=== PATIENT | female | born 1940 | race American Indian/Alaskan Native ===

== ENCOUNTER 2019-09-12 08:54 | Outpatient (CLI) | payer MEDICARE, OTHER | END 2019-09-12 08:55 | disposition home or self-care (01) | LOC: LABHHL 08:54 | PROVIDERS: ATTEND Surgery | DX: C50.411 Malignant neoplasm of upper-outer quadrant of right female breast (principal) | CPT/HCPCS: 88305; 88341; 88342 ==

== ENCOUNTER 2019-12-30 10:36 | Outpatient (CLI) | payer MEDICARE | END 2019-12-30 10:37 | disposition home or self-care (01) | LOC: LABHHL 10:36 | PROVIDERS: ATTEND Internal Medicine Hematology & Oncology | DX: C50.911 Malignant neoplasm of unspecified site of right female breast (principal) | CPT/HCPCS: 88342 ==

== ENCOUNTER 2020-03-14 03:44 | Emergency (ER) | payer MEDICARE ==
[2020-03-14 03:56] VITALS: BP 189/79
--- NOTE | 2020-03-14 03:58 | Emergency Department Report ---
ED General Adult HPI - General Chief complaint: Extremity Injury, Lower Stated complaint: PAIN TO BOTTOM OF FOOT PUI?: Yes Time Seen by Provider: 03/14/20 03:46 Source: patient, EMS Mode of arrival: Stretcher Limitations: No Limitations - History of Present Illness Initial comments: Patient is an 80-year-old female that presents emergency room with pain on the bottom of her feet. Patient states her bilateral feet have a burning sensation to the plantar surface. Patient states it started tonight. Patient states that she has had this many times. Patient states that her primary. Thinks that she has neuropathy. Patient denies chest pain. Patient denies other physical complaints. Patient denies shortness of breath. Patient denies headache. Patient denies fever and chills. Patient denies cough. Patient denies nausea vomiting. Patient states that she has leg swelling is chronic but it is actually improving. Patient denies calf pain. Patient denies leg pain. Patient denies recent travel. Patient denies recent international travel. Patient denies exposure to the novel coronavirus. Patient denies sick contacts. Patient denies fever and chills. Patient denies cough. Patient denies diarrhea. Patient denies coming in contact with anybody with symptoms of the novel coronavirus. -: month(s) Severity scale (0 -10): 4 Quality: burning Consistency: intermittent Improves with: rest Worsens with: movement Associated Symptoms: denies: confusion, chest pain, cough, diaphoresis, fever/chills, headaches, loss of appetite, malaise, nausea/vomiting, rash, seizure, shortness of breath, syncope, weakness Treatments Prior to Arrival: none - Related Data Home Medications Medication Instructions Recorded Confirmed Last Taken Simvastatin [Zocor TAB] 40 mg PO QHS 12/03/14 09/27/19 09/26/19 Haloperidol Decanoate (Nf) [Haldol 50 mg IM Q4W 07/28/15 09/27/19 2 Weeks Ago Decanoate] ~09/13/19 ISOSORBIDE MONOnitrate [Imdur ER] 120 mg PO QDAY 09/26/19 09/26/19 09/27/19 04:00 Furosemide [Lasix TAB] 20 mg PO 3XW 09/27/19 09/27/19 09/25/19 Potassium Chloride 10 meq PO 3XW 09/27/19 09/27/1909/24/20 Previous Rx's Medication Instructions Recorded Last Taken Type Ibuprofen [Motrin 600 MG tab] 600 mg PO Q8H PRN #30 tablet 06/03/15 09/27/19 04:00 Rx Aspirin EC [Halfprin EC] 81 mg PO QDAY #30 tablet 06/09/15 09/26/19 Rx hydrALAZINE [Apresoline TAB] 25 mg PO Q8HR #90 tablet 06/09/15 09/27/19 04:00 Rx lisinopriL [Zestril TAB] 5 mg PO QDAY #30 tablet 06/09/15 09/27/19 04:00 Rx HYDROcodone/APAP 7.5-325 [[place] 1 each PO Q8HR PRN #10 tablet 06/18/15 09/27/19 04:00 Rx 7.5-325 mg TAB] Naproxen [Naprosyn TAB] 375 mg PO BID PRN #30 tablet 07/17/15 09/27/19 04:00 Rx Allergies Allergy/AdvReac Type Severity Reaction Status Date / Time No Known Allergies Allergy Verified 07/28/15 03:37 ED Review of Systems ROS: Stated complaint: OAIN TO BOTTOM OF FOOT Other details as noted in HPI Constitutional: denies: chills, fever Eyes: denies: eye pain, eye discharge, vision change ENT: denies: ear pain, throat pain Respiratory: denies: cough, shortness of breath, wheezing Cardiovascular: denies: chest pain, palpitations Endocrine: no symptoms reported Gastrointestinal: denies: abdominal pain, nausea, diarrhea Genitourinary: denies: urgency, dysuria, discharge Musculoskeletal: denies: back pain, joint swelling, arthralgia Skin: denies: rash, lesions Neurological: denies: headache, weakness, paresthesias Psychiatric: denies: anxiety, depression Hematological/Lymphatic: denies: easy bleeding, easy bruising ED Past Medical Hx - Past Medical History Previous Medical History?: Yes Hx Hypertension: Yes (X 1 YR) Hx Heart Attack/AMI: No Hx Congestive Heart Failure: No Hx Diabetes: No Hx Liver Disease: No Hx Renal Disease: No Hx Sickle Cell Disease: No Hx Arthritis: Yes Hx Psychiatric Treatment: Yes ([place] ([facility]) & [facility]; schizophrenia) Hx Asthma: No Hx COPD: No Hx HIV: No Additional medical history: High cholesterol - Surgical History Past Surgical History?: Yes Hx Pacemaker: No Hx Breast Surgery: Yes (BREAST BX X 2) Additional Surgical History: Hysterectomy - Family History Family history: no significant - Social History Smoking Status: Never Smoker Substance Use Type: None - Medications Home Medications: Home Medications Medication Instructions Recorded Confirmed Last Taken Type Simvastatin [Zocor TAB] 40 mg PO QHS 12/03/14 09/27/19 09/26/19 History Ibuprofen [Motrin 600 MG tab] 600 mg PO Q8H PRN #30 tablet 06/03/15 09/26/19 09/27/19 04:00 Rx Aspirin EC [Halfprin EC] 81 mg PO QDAY #30 tablet 06/09/15 09/26/19 09/26/19 Rx hydrALAZINE [Apresoline TAB] 25 mg PO Q8HR #90 tablet 06/09/15 09/26/19 09/27/19 04:00 Rx lisinopriL [Zestril TAB] 5 mg PO QDAY #30 tablet 06/09/15 09/26/19 09/27/19 04:00 Rx HYDROcodone/APAP 7.5-325 [[place] 1 each PO Q8HR PRN #10 tablet 06/18/15 09/26/19 09/27/19 04:00 Rx 7.5-325 mg TAB] Naproxen [Naprosyn TAB] 375 mg PO BID PRN #30 tablet 07/17/15 09/26/19 09/27/19 04:00 Rx Haloperidol Decanoate (Nf) [Haldol 50 mg IM Q4W 07/28/15 09/27/19 2 Weeks Ago History Decanoate] ~09/13/19 ISOSORBIDE MONOnitrate [Imdur ER] 120 mg PO QDAY 09/26/19 09/26/19 09/27/19 04:00 History Furosemide [Lasix TAB] 20 mg PO 3XW 09/27/19 09/27/19 09/25/19 History Potassium Chloride 10 meq PO 3XW 09/27/19 09/27/19 09/25/19 History ED Physical Exam - General Limitations: No Limitations General appearance: alert, in no apparent distress - Head Head exam: Present: atraumatic, normocephalic - Eye Eye exam: Present: normal appearance - ENT ENT exam: Present: mucous membranes moist - Neck Neck exam: Present: normal inspection - Respiratory Respiratory exam: Present: normal lung sounds bilaterally. Absent: respiratory distress - Cardiovascular Cardiovascular Exam: Present: regular rate, normal rhythm. Absent: systolic murmur, diastolic murmur, rubs, gallop - GI/Abdominal GI/Abdominal exam: Present: soft, normal bowel sounds - Extremities Exam Extremities exam: Present: normal inspection, full ROM, normal capillary refill, pedal edema. Absent: tenderness, joint swelling, calf tenderness - Back Exam Back exam: Present: normal inspection - Neurological Exam Neurological exam: Present: alert, oriented X3 - Psychiatric Psychiatric exam: Present: normal affect, normal mood - Skin Skin exam: Present: warm, dry, intact, normal color. Absent: rash ED Course - Reevaluation(s) Reevaluation #1: I discussed all results and clinical findings with patient. I discussed plan of care with patient. Patient agrees with plan of care. Patient is stable for discharge. Patient will be discharged home. Patient given discharge instructions. Patient voiced understanding of discharge instructions. 03/14/20 03:56 ED Medical Decision Making - Medical Decision Making Patient is an 80-year-old female that presents emergency room with burning on the bottom of the feet. Patient clinical findings are consistent with neuropathy. Patient is stable for discharge. Patient was discharged home. Patient not require further emergency medical services. Patient agrees with plan of care. Patient will be discharged home. - Differential Diagnosis Neuropathy, foot pain. Chronic pain Critical care attestation.: If time is entered above; I have spent that time in minutes in the direct care of this critically ill patient, excluding procedure time. ED Disposition Clinical Impression: Neuropathy Disposition: DC-01 TO HOME OR SELFCARE Is pt being admited?: No Does the pt Need Aspirin: No Condition: Stable Instructions: Peripheral Neuropathy (ED) Additional Instructions: Patient to follow-up with primary care in 2 to 3 days. Patient to rest. Yesi ent to increase water. Patient to take Tylenol or ibuprofen as needed for pain. Patient to continue all medications.. Patient to return to the ER if condition worsens, changes or new symptoms arise. Time of Disposition: 03:58
== END 2020-03-14 04:15 | disposition home or self-care (01) ==
LOC: ED 03:44
DX: G62.9 Polyneuropathy, unspecified (principal); I10 Essential (primary) hypertension; M19.90 Unspecified osteoarthritis, unspecified site; Z90.710 Acquired absence of both cervix and uterus; Z79.82 Long term (current) use of aspirin; Z79.899 Other long term (current) drug therapy
CPT/HCPCS: 99283

== ENCOUNTER 2020-03-23 16:09 | Inpatient (IN) | payer MEDICARE ==
[2020-03-23] MEDS ORDERED: hydrALAZINE 20 MG/1 ML INJ IV ONE ×2 (19:03→21:14)
--- NOTE | 2020-03-23 19:12 | Emergency Department Report ---
HPI - General Chief Complaint: Medical Clearance Time Seen by Provider: 03/23/20 18:55 - HPI HPI: This is an 80-year-old female presents to the emergency department, sent in by her breast surgeon Dr. Dye, for evaluation of her breast cancer and poss ible placement. Patient states that she has "bad breast cancer" to the right breast. She has a previous left-sided mastectomy. The patient is already gone through chemotherapy and radiation and last had radiation therapy about 2 weeks ago. She is complaining of generalized pain that is not relieved by her prescribed Ultram. She is noted to have a right-sided chest wall lesion that is draining brown purulent appearing material and some surrounding necrotic tissue. She also has a past medical history of arthritis, hypertension, high cholesterol and has a history of schizophrenia. I later spoke with Dr. Dey. 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 The patient has been to multiple emergency departments recently as she does not feel comfortable staying at home in her current condition. The patient went in to see Dr. Dye today but Dr. Kd regalado was in surgery and the patient saw the PA. Dr. Dye is aware of the condition of the patient's chest wall and wound. The area is inoperable as she would be unable to close the wound. She suggested the patient needs wound care and hospice. ED Past Medical Hx - Past Medical History Previous Medical History?: Yes Hx Hypertension: Yes (X 1 YR) Hx Heart Attack/AMI: No Hx Congestive Heart Failure: No Hx Diabetes: No Hx Liver Disease: No Hx Renal Disease: No Hx Sickle Cell Disease: No Hx Arthritis: Yes Hx Psychiatric Treatment: Yes ([place] ([facility]; schizophrenia) Hx Asthma: No Hx COPD: No Hx HIV: No Additional medical history: High cholesterol - Surgical History Past Surgical History?: Yes Hx Pacemaker: No Hx Breast Surgery: Yes (BREAST BX X 2) Additional Surgical History: Hysterectomy - Social History Smoking Status: Never Smoker Substance Use Type: None - Medications Home Medications: Home Medications Medication Instructions Recorded Confirmed Last Taken Type Simvastatin [Zocor TAB] 40 mg PO QHS 12/03/14 09/27/19 09/26/19 History Ibuprofen [Motrin 600 MG tab] 600 mg PO Q8H PRN #30 tablet 06/03/15 09/26/19 09/27/19 04:00 Rx Aspirin EC [Halfprin EC] 81 mg PO QDAY #30 tablet 06/09/15 09/26/19 09/26/19 Rx hydrALAZINE [Apresoline TAB] 25 mg PO Q8HR #90 tablet 06/09/15 09/26/19 09/27/19 04:00 Rx lisinopriL [Zestril TAB] 5 mg PO QDAY #30 tablet 06/09/15 09/26/19 09/27/19 04:00 Rx HYDROcodone/APAP 7.5-325 [[place] 1 each PO Q8HR PRN #10 tablet 06/18/15 09/26/19 09/27/19 04:00 Rx 7.5-325 mg TAB] Naproxen [Naprosyn TAB] 375 mg PO BID PRN #30 tablet 07/17/15 09/26/19 09/27/19 04:00 Rx Haloperidol Decanoate (Nf) [Haldol 50 mg IM Q4W 07/28/15 09/27/19 2 Weeks Ago History Decanoate] ~09/13/19 ISOSORBIDE MONOnitrate [Imdur ER] 120 mg PO QDAY 09/26/19 09/26/19 09/27/19 04:00 History Furosemide [Lasix TAB] 20 mg PO 3XW 09/27/19 09/27/19 09/25/19 History Potassium Chloride 10 meq PO 3XW 09/27/19 09/27/19 09/25/19 History ED Review of Systems ROS: Stated complaint: DR ORDERS TO COME TO ER Other details as noted in HPI Comment: All other systems reviewed and negative Constitutional: denies: chills, fever Eyes: denies: eye pain, vision change ENT: denies: ear pain, throat pain Respiratory: denies: cough, shortness of breath Cardiovascular: chest pain (chest wall pain). denies: palpitations Gastrointestinal: denies: abdominal pain, vomiting Genitourinary: denies: dysuria, discharge Musculoskeletal: denies: back pain, arthralgia Skin: lesions. denies: pruritus Neurological: denies: headache, weakness Physical Exam - Physical Exam Vital Signs: Vital Signs 03/23/20 03/23/20 16:47 19:03 Temperature 97.4 F L Pulse Rate 76 83 Respiratory 20 17 Rate Blood Pressure 182/95 Blood Pressure 220/99 [Left] O2 Sat by Pulse 99 98 Oximetry Physical Exam: GENERAL: The patient is well-developed well-nourished. HENT: Normocephalic. Atraumatic. Patient has moist mucous membranes. EYES: Extraocular motions are intact. NECK: Supple. Trachea is midline. CHEST/LUNGS: Clear to auscultation. There is no respiratory distress noted. HEART/CARDIOVASCULAR: Regular. There is no tachycardia. ABDOMEN: Abdomen is soft, nontender. Patient has normal bowel sounds. SKIN: Skin is warm and dry. There is a right-sided chest/breast wound. There is some thick fungating tissue around the room with some central ulceration and some visible brownish purulent appearing discharge. NEURO: The patient is awake, alert, and oriented. The patient is cooperative. The patient has no focal neurologic deficits. Normal speech. MUSCULOSKELETAL: There is no tenderness or deformity. ED Course Vital Signs 03/23/20 03/23/20 16:47 19:03 Temperature 97.4 F L Pulse Rate 76 83 Respiratory 20 17 Rate Blood Pressure 182/95 Blood Pressure 220/99 [Left] O2 Sat by Pulse 99 98 Oximetry ED Medical Decision Making - Lab Data Result diagrams: 03/23/20 19:11 03/23/20 19:11 - EKG Data -: EKG Interpreted by [facility] EKG shows normal: sinus rhythm, axis, intervals, QRS complexes, ST-T waves Rate: normal - EKG Data When compared to previous EKG there are: previous EKG unavailable Interpretation: normal EKG - Medical Decision Making This patient presents to the emergency department with a complaint of generalized body pain, a right-sided breast/chest wall wound, and uncontrolled blood pressure. She has advanced breast cancer with metastatic brain lesions. Patient is afebrile. There is no renal insufficiency but the labs do show signs of dehydration and prerenal azotemia with a BUN to creatinine ratio of almost 30. Patient was given some IV fluid resuscitation. Patient was also given a dose of IV analgesia and IV antihypertensive medication with some improvement in the hypertension. Patient will be admitted to the hospital for further evaluation and a consultation from her breast surgeon with the plan for wound care and possible hospice consult. Patient has been accepted for admission by the hospitalist, Dr. De Los Santos. Critical Care Time: No Critical care attestation.: If time is entered above; I have spent that time in minutes in the direct care of this critically ill patient, excluding procedure time. ED Disposition Clinical Impression: Hypertensive urgency, Dehydration Breast cancer Qualifiers: Breast location: unspecified site of breast Estrogen receptor status: unspecified Patient sex: female Laterality: right Qualified Code(s): C50.911 - Malignant neoplasm of unspecified site of right female breast Breast wound Qualifiers: Encounter type: subsequent encounter Laterality: right Qualified Code(s): S21.001D - Unspecified open wound of right breast, subsequent encounter Disposition: DC-09 OP ADMIT IP TO THIS HOSP Is pt being admited?: Yes Condition: Serious Time of Disposition: 21:25
[2020-03-23 19:29] LABS: Basophils % (Auto) 0.6 % (0.0-1.8); Eosinophils # (Auto) 0.2 K/mm3 (0.0-0.4); Eosinophils % (Auto) 2.8 % (0.0-4.3); Hematocrit 34.2 % (30.3-42.9); Lymphocytes # (Auto) 0.5 K/mm3 (1.2-5.4); Lymphocytes % (Auto) 7.6 % (13.4-35.0); Mean Corpuscular HGB Conc 32 % (30-34); Mean Corpuscular Volume 91 fl (79-97); Monocytes # (Auto) 0.7 K/mm3 (0.0-0.8); Monocytes % (Auto) 12.1 % (0.0-7.3); Platelet Count 251 K/mm3 (140-440); Red Blood Count 3.75 M/mm3 (3.65-5.03); Red Cell Distribution Width 13.8 % (13.2-15.2)
[2020-03-23] MEDS ORDERED: MORPHINE 2 MG/1 ML INJ IV ONE (19:41)
[2020-03-23 19:42] LABS: Albumin 3.4 g/dL (3.9-5); Calcium 9.5 mg/dL (8.4-10.2)
[2020-03-23] MEDS ORDERED: SODIUM CHLORIDE 0.9% 500 ML 500 ML IV ONE (19:54)
[2020-03-23] MEDS ORDERED: ONDANSETRON 4 MG/2 ML INJ IV PRN (21:37)
--- NOTE | 2020-03-23 21:45 | History and Physical Report ---
History of Present Illness Date of examination: 03/23/20 Date of admission: 03/23/2020 Chief complaint: Right Breast Cancer with Wound. History of present illness: 18-year-old after [place] female with known history of hypertension, arthritis, schizophrenia, history of breast cancer with left mastectomy in the past presenting to the emergency room today having been sent by her breast surgeon Dr. Gruber for for evaluation of wound right-sided breast cancer and for possible placement. Patient has had chemotherapy and radiation in the past and last radiation was s aid to be about 2 weeks ago. Patient complained of generalized pain which is not responding to analgesic medication Ultram. She has also noticed a brownish purulent drainage from the right breast wound. According to information gathered from the emergency room physician patient was said to have been noncompliant in the past with management and has gone to multiple hospitals and has had multiple emergency room visits. She is said to have gone to see Dr. Dye today but ended up seeing her PA as Dr. Dye was in surgery. Breast cancer with wound on the right breast is said to be inoperable. Recommendation is to have wound care and hospice. Upon arrival in the emergency room patient was hypotensive with systolic blood pressure in the 200s and diastolic blood pressure in the 100s. She was given multiple doses of IV hydralazine with some improvement in her blood pressure. Patient is being admitted for hypertensive urgency and also for evaluation of her right breast wound and for possible Hospice placement. Past History Past Medical History: arthritis, hypertension, hyperlipidemia, other (Schizpophrenia) Past Surgical History: hysterectomy, mastectomy (Left), Other (Breast biopsy X2) Social history: no significant social history Family history: no significant family history Medications and Allergies Allergies Allergy/AdvReac Type Severity Reaction Status Date / Time No Known Allergies Allergy Verified 07/28/15 03:37 Home Medications Medication Instructions Recorded Confirmed Last Taken Type Simvastatin [Zocor TAB] 40 mg PO QHS 12/03/14 09/27/19 09/26/19 History Ibuprofen [Motrin 600 MG tab] 600 mg PO Q8H PRN #30 tablet 06/03/15 09/26/19 09/27/19 04:00 Rx Aspirin EC [Halfprin EC] 81 mg PO QDAY #30 tablet 06/09/15 09/26/19 09/26/19 Rx hydrALAZINE [Apresoline TAB] 25 mg PO Q8HR #90 tablet 06/09/15 09/26/19 09/27/19 04:00 Rx lisinopriL [Zestril TAB] 5 mg PO QDAY #30 tablet 06/09/15 09/26/19 09/27/19 04:00 Rx HYDROcodone/APAP 7.5-325 [[place] 1 each PO Q8HR PRN #10 tablet 06/18/15 09/26/19 09/27/19 04:00 Rx 7.5-325 mg TAB] Naproxen [Naprosyn TAB] 375 mg PO BID PRN #30 tablet 07/17/15 09/26/19 09/27/19 04:00 Rx Haloperidol Decanoate (Nf) [Haldol 50 mg IM Q4W 07/28/15 09/27/19 2 Weeks Ago History Decanoate] ~09/13/19 ISOSORBIDE MONOnitrate [Imdur ER] 120 mg PO QDAY 09/26/19 09/26/19 09/27/19 04:00 History Furosemide [Lasix TAB] 20 mg PO 3XW 09/27/19 09/27/19 09/25/19 History Potassium Chloride 10 meq PO 3XW 09/27/19 09/27/19 09/25/19 History Active Meds: Active Medications Acetaminophen (Tylenol) 650 mg PO Q4H PRN PRN Reason: Pain MILD(1-3)/Fever >100.5/CHAUHAN Enoxaparin Sodium (Enoxaparin) 40 mg SUB-Q QDAY@2200 LEIZABET; Protocol Sodium Chloride (Nacl 0.9% 1000 Ml) 1,000 mls @ 75 mls/hr IV DIRECT ELIZABET Magnesium Hydroxide (Milk Of Magnesia) 30 ml PO Q4H PRN PRN Reason: Constipation Morphine Sulfate (Morphine) 2 mg IV Q4H PRN PRN Reason: Pain, Moderate (4-6) Ondansetron HCl (Zofran) 4 mg IV Q8H PRN PRN Reason: Nausea And Vomiting Sodium Chloride (Sodium Chloride Flush Syringe 10 Ml) 10 ml IV BID ELIZABET Sodium Chloride (Sodium Chloride Flush Syringe 10 Ml) 10 ml IV PRN PRN PRN Reason: LINE FLUSH Review of Systems Constitutional: no fever, no chills Ears, nose, mouth and throat: no nasal congestion, no sore throat Breasts: change in shape, discharge (Right breast), skin changes (Right) Cardiovascular: no chest pain, no palpitations Respiratory: no cough, no shortness of breath Gastrointestinal: no abdominal pain, no nausea, no vomiting, no diarrhea Genitourinary Female: no pelvic pain, no flank pain, no dysuria, no hematuria Musculoskeletal: no neck pain, no low back pain Integumentary: no rash, no pruritis Neurological: no headaches, no confusion Psychiatric: no anxiety, no depression Exam - Constitutional Vitals: Temp Pulse Resp BP Pulse Ox 97.6 F 100 H 12 164/88 94 03/23/20 19:30 03/23/20 21:30 03/23/20 21:30 03/23/20 21:30 03/23/20 21:30 General appearance: Present: no acute distress, cachectic, other (Dry oral Mucosa) - EENT Eyes: Present: PERRL, EOM intact. Absent: scleral icterus ENT: hearing intact, clear oral mucosa, dentition normal - Neck Neck: Present: supple, normal ROM - Respiratory Respiratory effort: normal Respiratory: bilateral: CTA - Cardiovascular Rhythm: regular Heart Sounds: Present: S1 & S2. Absent: gallop, systolic murmur, diastolic murmur, rub - Extremities Extremities: no ischemia, pulses intact, pulses symmetrical, Full ROM Extremity abnormal: edema (Trace bilateral lower extremity edema.) Peripheral Pulses: within normal limits - Abdominal General gastrointestinal: Present: soft, non-tender, non-distended, normal bowel sounds. Absent: mass - Integumentary Integumentary: Present: clear, warm, dry. Absent: rash - Musculoskeletal Musculoskeletal: strength equal bilaterally - Psychiatric Psychiatric: appropriate mood/affect, intact judgment & insight, memory intact, cooperative - Neurologic Neurologic: CNII-XII intact, no focal deficits, no moves all extremities - Additional findings Additional findings: Breast: Left breast mastectomy Fungating wound on the right breast with purulent brownish discharge. Minimal tenderness. Results - Labs CBC & Chem 7: 03/23/20 19:11 03/23/20 19:11 Labs: Abnormal lab results 03/23/20 03/23/20 Range/Units 19:11 19:11 Lymph % (Auto) 7.6 L (13.4-35.0) % [place] % (Auto) 12.1 H (0.0-7.3) % Lymph # (Auto) 0.5 L (1.2-5.4) K/mm3 Seg Neutrophils % 76.9 H (40.0-70.0) % BUN 31 H (7-17) mg/dL Glucose 138 H (65-100) mg/dL Albumin 3.4 L (3.9-5) g/dL Assessment and Plan - Patient Problems (1) Breast cancer Current Visit: Yes Status: Acute Plan to address problem: Patient has had left mastectomy in the past. She also has a right breast cancer with inoperable wound. She has had chemotherapy and radiation in the past. Patient follows up with Dr. Dye. Patient is to have wound care and also possible hospice placement. (2) Hypertensive urgency Current Visit: Yes Status: Acute Plan to address problem: We will resume patient's routine home medications. We will also placed on IV hydralazine as needed for optimal blood pressure control. (3) Dehydration Current Visit: Yes Status: Acute Plan to address problem: Patient placed on gentle IV fluid hydration. We will monitor BUN and creatinine. (4) DVT prophylaxis Current Visit: No Status: Acute Plan to address problem: Patient placed on subcutaneous Lovenox (5) Full code status Current Visit: No Status: Acute
[2020-03-23] MEDS ORDERED: ENOXAPARIN 40 MG/0.4 ML INJ SUB-Q SCH (22:00)
[2020-03-23] MEDS ORDERED: ENOXAPARIN 30 MG/0.3 ML INJ SUB-Q ONE (22:17)
[2020-03-23] MEDS: ENOXAPARIN 30 MG/0.3 ML INJ SUB-Q SCH (22:19)
[2020-03-24] MEDS ORDERED: MORPHINE 2 MG/1 ML INJ ONE ×3 (06:30→17:30)
[2020-03-24] MEDS ORDERED: amLODIPine 10 MG TAB ONE ×2 (11:00→13:13)
[2020-03-24] MEDS ORDERED: hydrALAZINE 100 MG TAB ONE ×2 (11:00→13:13)
[2020-03-24] MEDS ORDERED: hydrALAZINE 20 MG/1 ML INJ IV PRN (17:24)
[2020-03-24] MEDS: MORPHINE 2 MG/1 ML INJ IV PRN ×2 (17:44→22:22)
[2020-03-24] MEDS: ACETAMINOPHEN 325 MG TAB PO PRN (20:09)
--- NOTE | 2020-03-24 21:30 | Progress Note ---
Assessment and Plan -- Breast cancer Patient has had left mastectomy in the past. She also has a right breast cancer with inoperable wound. She has had chemotherapy and radiation in the past. Patient follows up with Dr. Dye. Patient started on wound care and also possible hospice placement. -- Hypertensive urgency resume patient's routine home medications. also placed on IV hydralazine as needed for optimal blood pressure control. --Osteoarthritis, supportive care and pain management as needed --Schizophrenia, history of Continue home meds, patient clinically stable -- Dehydration Patient placed on gentle IV fluid hydration. We will monitor BUN and creatinine. --Severe protein calorie malnutrition, continue nutritional supplement Consult dietary -- DVT prophylaxis Patient placed on subcutaneous Lovenox -- Full code status --Discharge planning, pending inpatient psych placement brief History: 80-year-old after [place]ian female with known history of hypertension, arthritis, schizophrenia, history of metastatic right breast cancer with left mastectomy in the past presenting to the emergency room for evaluation of wound right-sided breast cancer and for possible placement. Upon arrival in the emergency room patient was hypotensive with systolic blood pressure in the 200s and diastolic blood pressure in the 100s. She was given multiple doses of IV hydralazine with some improvement in her blood pressure. Patient is being admitted for hypertensive urgency and also for evaluation of her right breast wound and for possible Hospice placement. I discussed the case with Dr. Dye -breast surgeon who also discussed with patient's oncologist Dr. Tucker and they both agreeable for the inpatient hospice placement. branch operation evaluation manager notified. Subjective Date of service: 03/24/20 Interval history: Patient seen and examined. Medical records and medication list reviewed. No acute event overnight noted by the RN. Patient with right breast wound with dressing. Patient is started on diet and tolerating. Discussed plan of care at bedside with patient. Discussed with Dr. Dye and recommended inpatient hospice Objective - Exam Narrative Exam: - General physical appearance Positive: cathetic - Eyes Positive: PERRL, normal occular movement - ENT Positive: normal pinna, normal nares, normal mucosa, no hearing loss, no congestion - Neck Positive: no masses, trachea midline - Respiratory Positive: normal expansion, normal respiratory effort - Cardiovascular Rhythm: regular - Breasts Breasts: other (ulcerated necrotic right breast mass encompassing the entire right chest) - Abdomen Abdomen: Present: soft - Genitourinary Female Genitourinary: deferred - Neurologic Neurologic: alert and oriented to time, place and person - Psychiatric Psychiatric: appropriate mood/affect, intact judgment & insight, memory intact, cooperative - Constitutional Vitals: Vital Signs - 12hr 03/24/20 03/24/20 12:42 17:36 Temperature 97.9 F 97.5 F L Pulse Rate 57 L 56 L Respiratory 18 20 Rate Blood Pressure 215/112 163/84 O2 Sat by Pulse 93 88 Oximetry - Labs CBC & Chem 7: 03/23/20 19:11 03/23/20 19:11
[2020-03-24] MEDS: SODIUM CHLORIDE 0.9% 1000 ML 1,000 ML IV SCH (22:21)
[2020-03-24] MEDS: hydrALAZINE 100 MG TAB PO SCH (22:21)
[2020-03-24] MEDS: ENOXAPARIN 30 MG/0.3 ML INJ SUB-Q SCH (22:21)
[2020-03-25] MEDS: hydrALAZINE 100 MG TAB PO SCH ×3 (05:15→22:09)
[2020-03-25] MEDS: MORPHINE 2 MG/1 ML INJ IV PRN ×4 (06:44→22:09)
[2020-03-25] MEDS: amLODIPine 10 MG TAB PO SCH (10:22)
--- NOTE | 2020-03-25 11:38 | Consultation ---
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 Patient was initially seen in my office a year and a half ago with recommendations for right ultrasound-guided needle core right breast biopsy given high suspicious findings for right breast cancer. Patient did not have recommended biopsy same day as visit and also did keep follow-up appointment. Patient then was referred back to my care 10 months later with worsening findings of obvious advanced stage right breast cancer. Patient was then started on chemotherapy by medical oncologist Dr. Tucker. Upon completion of her chemotherapy patient was reevaluated with worsening findings of the upper abdomen satellite skin lesions and additional chemotherapy was recommended that was administered. Patient did not tolerate chemotherapy very well initially and then underwent palliative radiation therapy given inability to close the skin primarily if proceeding with surgery. Patient with known metastatic disease to the brain with conservative management recommended by radiation oncology. Rodrigo lopez was recently evaluated in our office on Monday, March 23 after being seen at outside ER over the weekend for complaints of pain and concerns of not being able to care for herself alone at home. Patient was admitted into the hospital. Past History Past Medical History: arthritis, hypertension, hyperlipidemia, other (Schizpophrenia; bilateral breast cancer) Past Surgical History: hysterectomy, mastectomy (Left), Other (Breast biopsy X2) Social history: no significant social history Family history: no significant family history Medications and Allergies Allergies Allergy/AdvReac Type Severity Reaction Status Date / Time No Known Allergies Allergy Verified 07/28/15 03:37 Home Medications Medication Instructions Recorded Confirmed Last Taken Type Simvastatin [Zocor TAB] 40 mg PO QHS 12/03/14 09/27/19 09/26/19 History Ibuprofen [Motrin 600 MG tab] 600 mg PO Q8H PRN #30 tablet 06/03/15 09/26/19 09/27/19 04:00 Rx Aspirin EC [Halfprin EC] 81 mg PO QDAY #30 tablet 06/09/15 09/26/19 09/26/19 Rx hydrALAZINE [Apresoline TAB] 25 mg PO Q8HR #90 tablet 06/09/15 09/26/19 09/27/19 04:00 Rx lisinopriL [Zestril TAB] 5 mg PO QDAY #30 tablet 06/09/15 09/26/19 09/27/19 04:00 Rx HYDROcodone/APAP 7.5-325 [[place] 1 each PO Q8HR PRN #10 tablet 06/18/15 09/26/19 09/27/19 04:00 Rx 7.5-325 mg TAB] Naproxen [Naprosyn TAB] 375 mg PO BID PRN #30 tablet 07/17/15 09/26/19 09/27/19 04:00 Rx Haloperidol Decanoate (Nf) [Haldol 50 mg IM Q4W 07/28/15 09/27/19 2 Weeks Ago History Decanoate] ~09/13/19 ISOSORBIDE MONOnitrate [Imdur ER] 120 mg PO QDAY 09/26/19 09/26/19 09/27/19 04:00 History Furosemide [Lasix TAB] 20 mg PO 3XW 09/27/19 09/27/19 09/25/19 History Potassium Chloride 10 meq PO 3XW 09/27/19 09/27/19 09/25/19 History Active Meds: Active Medications Acetaminophen (Tylenol) 650 mg PO Q4H PRN PRN Reason: Pain MILD(1-3)/Fever >100.5/CHAUHAN Last Admin: 03/24/20 20:09 Dose: 650 mg Documented by: Amlodipine Besylate (Amlodipine) 10 mg PO DAILY [facility] Last Admin: 03/25/20 10:22 Dose: 10 mg Documented by: Clindamycin HCl (Cleocin) 300 mg PO TID ELIZABET Enoxaparin Sodium (Enoxaparin) 30 mg SUB-Q QDAY@2200 [facility]; Protocol Last Admin: 03/24/20 22:21 Dose: 30 mg Documented by: Hydralazine HCl (Apresoline) 10 mg IV Q4H PRN PRN Reason: SBP>160 Hydralazine HCl (Apresoline) 100 mg PO Q8HR [facility] Last Admin: 03/25/20 05:15 Dose: 100 mg Documented by: Sodium Chloride (Nacl 0.9% 1000 Ml) 1,000 mls @ 75 mls/hr IV DIRECT [facility] Last Admin: 03/24/20 22:21 Dose: 75 mls/hr Documented by: Magnesium Hydroxide (Milk Of Magnesia) 30 ml PO Q4H PRN PRN Reason: Constipation Morphine Sulfate (Morphine) 2 mg IV Q4H PRN PRN Reason: Pain, Moderate (4-6) Last Admin: 03/25/20 10:22 Dose: 2 mg Documented by: Ondansetron HCl (Zofran) 4 mg IV Q8H PRN PRN Reason: Nausea And Vomiting Sodium Chloride (Sodium Chloride Flush Syringe 10 Ml) 10 ml IV BID [facility] Last Admin: 03/24/20 22:22 Dose: 10 ml Documented by: Sodium Chloride (Sodium Chloride Flush Syringe 10 Ml) 10 ml IV PRN PRN PRN Reason: LINE FLUSH Review of Systems All systems: negative - Constitutional weight loss, fatigue - Breasts swelling, mass, discharge, skin changes - Muskuloskeletal gait dysfunction Exam Vital Signs Temp Pulse Resp BP Pulse Ox 97.4 F L 76 20 182/95 99 03/23/20 16:47 03/23/20 16:47 03/23/20 16:47 03/23/20 16:47 03/23/20 16:47 - General physical appearance Positive: cathetic - Eyes Positive: PERRL, normal occular movement - ENT Positive: normal pinna, normal nares, normal mucosa, no hearing loss, no congestion - Neck Positive: no masses, trachea midline - Respiratory Positive: normal expansion, normal respiratory effort - Cardiovascular Rhythm: regular - Breasts Breasts: other (ulcerated necrotic right breast mass encompassing the entire right chest) - Abdomen Abdomen: Present: soft - Genitourinary Female Genitourinary: deferred - Neurologic Neurologic: alert and oriented to time, place and person - Psychiatric Psychiatric: appropriate mood/affect, intact judgment & insight, memory intact, cooperative Results - Labs 03/23/20 19:11 03/23/20 19:11 Assessment and Plan This is an 80-year-old lady with unfortunate metastatic stage IV right breast cancer recently admitted. Physical exam findings with ulcerated necrotic right chest wall breast cancer mass. I discussed case with her medical oncologist Dr. Tucker with recommendations for inpatient hospice. I agree given advanced staged metastatic right breast cancer. I discussed hospice care with patient on Monday as well as today. I recommend wound care to the right chest wall as well as antibiotics of clindamycin. Please call me with any questions, .
[2020-03-25] MEDS: CLINDAMYCIN 300 MG CAP PO SCH ×2 (13:42→22:09)
[2020-03-25] MEDS: MAGNESIUM HYDROXIDE (MOM) ORAL LIQD UDC PO PRN (13:45)
[2020-03-25] MEDS: SODIUM CHLORIDE 0.9% 1000 ML 1,000 ML IV SCH (16:40)
--- NOTE | 2020-03-25 17:23 | Discharge Summary ---
Providers - Providers Date of Admission: 03/23/20 21:26 Date of discharge: 03/27/20 Attending physician: RAQUEL CARBAJAL 03/23/20 21:10 Consult to Physician [CONS] Routine Comment: Consulting Provider: RAKAN DYE Physician Instructions: Reason For Exam: breast cancer 03/23/20 21:59 Consult to Case Management [CONS] Routine Services Needed at Discharge: Other Comment:: History of breast cancer with metastasis. Evaluate for hospice placement Consult to Wound/ET Nurse [CONS] Routine Reason For Exam: wound eval on right breast Primary care physician: TEST DRILLER Hospitalization Condition: Serious Hospital course: 80-year-old after Citizen Of [place] female with known history of hypertension, arthritis, schizophrenia, history of metastatic right breast cancer with left mastectomy in the past presenting to the emergency room for evaluation of wound right-sided breast cancer and for possible placement. Upon arrival in the emergency room patient was hypotensive with systolic blood pressure in the 200s and diastolic blood pressure in the 100s. She was given multiple doses of IV hydralazine with some improvement in her blood pressure. Patient is being admitted for hypertensive urgency and also for evaluation of her right breast wound and for possible Hospice placement. I discussed the case with Dr. Dye -breast surgeon who also discussed with patient's oncologist Dr. Tucker and they both agreeable for the inpatient hospice placement. operating manager notified and inpatient hospice was arranged. Patient family was notified and they also agreed with the management. Patient was then discharged to inpatient hospice care in stable condition. Discharge diagnosis: -- Breast cancer Patient has had left mastectomy in the past. She also has a right breast cancer with inoperable wound. She has had chemotherapy and radiation in the past. Patient follows up with Dr. Dye. Patient started on wound care and also possible hospice placement. -- Hypertensive urgency Continue to adjust BP meds for better BP control also placed on IV hydralazine as needed for optimal blood pressure control. --Osteoarthritis, supportive care and pain management as needed --Schizophrenia, history of Continue home meds, patient clinically stable -- Dehydration Patient placed on gentle IV fluid hydration. We will monitor BUN and creatinine. --Severe protein calorie malnutrition, continue nutritional supplement Consult dietary -- DVT prophylaxis Patient placed on subcutaneous Lovenox -- Full code status --Discharge : inpatient hospice placement Disposition: [facility] (MED FACILITY) Time spent for discharge: 34 minutes Core Measure Documentation - Palliative Care Palliative Care/ Comfort Measures: Not Applicable - Core Measures Any of the following diagnoses?: none Exam - Physical Exam Narrative exam: - General physical appearance Positive: cathetic - Eyes Positive: PERRL, normal occular movement - ENT Positive: normal pinna, normal nares, normal mucosa, no hearing loss, no congestion - Neck Positive: no masses, trachea midline - Respiratory Positive: normal expansion, normal respiratory effort - Cardiovascular Rhythm: regular - Breasts Breasts: other (ulcerated necrotic right breast mass encompassing the entire right chest) - Abdomen Abdomen: Present: soft - Genitourinary Female Genitourinary: deferred - Neurologic Neurologic: alert and oriented to time, place and person - Psychiatric Psychiatric: appropriate mood/affect, intact judgment & insight, memory intact, cooperative - Constitutional Vitals: Temp Pulse Resp BP Pulse Ox 98.2 F 103 H 15 140/79 94 03/25/20 16:25 03/25/20 16:25 03/25/20 16:25 03/25/20 16:25 03/25/20 16:25 Plan Activity: up only with assistance Weight Bearing Status: Non-Weight Bearing Diet: regular Wound: per wound nurse instructions Follow up with: PRIMARY CARE, [Primary Care Provider] - 7 Days
[2020-03-25] MEDS: ENOXAPARIN 30 MG/0.3 ML INJ SUB-Q SCH (22:09)
[2020-03-26] MEDS: SODIUM CHLORIDE 0.9% 1000 ML 1,000 ML IV SCH ×2 (06:16→18:34)
[2020-03-26] MEDS: hydrALAZINE 100 MG TAB PO SCH ×3 (06:16→22:01)
[2020-03-26] MEDS: MORPHINE 2 MG/1 ML INJ IV PRN ×3 (06:16→19:44)
[2020-03-26] MEDS: CLINDAMYCIN 300 MG CAP PO SCH ×3 (09:15→22:01)
[2020-03-26] MEDS: amLODIPine 10 MG TAB PO SCH (09:15)
--- NOTE | 2020-03-26 17:24 | Progress Note ---
Assessment and Plan -- Breast cancer Patient has had left mastectomy in the past. She also has a right breast cancer with inoperable wound. She has had chemotherapy and radiation in the past. Patient follows up with Dr. Dye. Patient started on wound care and also possible hospice placement. -- Hypertensive urgency Continue to adjust BP meds for better BP control also placed on IV hydralazine as needed for optimal blood pressure control. --Osteoarthritis, supportive care and pain management as needed --Schizophrenia, history of Continue home meds, patient clinically stable -- Dehydration Patient placed on gentle IV fluid hydration. We will monitor BUN and creatinine. --Severe protein calorie malnutrition, continue nutritional supplement Consult dietary -- DVT prophylaxis Patient placed on subcutaneous Lovenox -- Full code status --Discharge planning, pending inpatient psych placement brief History: 80-year-old after [place] female with known history of hypertension, arthritis, schizophrenia, history of metastatic right breast cancer with left mastectomy in the past presenting to the emergency room for evaluation of wound right-sided breast cancer and for possible placement. Upon arrival in the emergency room patient was hypotensive with systolic blood pressure in the 200s and diastolic blood pressure in the 100s. She was given multiple doses of IV hydralazine with some improvement in her blood pressure. Patient is being admitted for hypertensive urgency and also for evaluation of her right breast wound and for possible Hospice placement. I discussed the case with Dr. Dye -breast surgeon who also discussed with patient's oncologist Dr. Tucker and they both agreeable for the inpatient hospice placement. food concession manager notified. Subjective Date of service: 03/25/20 Interval history: Patient seen and examined. Medical records and medication list reviewed. No acute event overnight noted by the RN. Patient with right breast wound with dressing. Patient is started on diet and tolerating. Discussed plan of care at bedside with patient. Pending inpatient hospice placement Objective - Exam Narrative Exam: - General physical appearance Positive: cathetic - Eyes Positive: PERRL, normal occular movement - ENT Positive: normal pinna, normal nares, normal mucosa, no hearing loss, no congestion - Neck Positive: no masses, trachea midline - Respiratory Positive: normal expansion, normal respiratory effort - Cardiovascular Rhythm: regular - Breasts Breasts: other (ulcerated necrotic right breast mass encompassing the entire right chest) - Abdomen Abdomen: Present: soft - Genitourinary Female Genitourinary: deferred - Neurologic Neurologic: alert and oriented to time, place and person - Psychiatric Psychiatric: appropriate mood/affect, intact judgment & insight, memory intact, cooperative - Constitutional Vitals: Vital Signs - 12hr 03/26/20 03/26/20 03/26/20 06:14 06:17 09:15 Temperature 97.7 F 98.3 F Pulse Rate 101 H 70 108 H Respiratory 18 18 Rate Blood Pressure 150/77 147/83 Blood Pressure 190/93 [Left] O2 Sat by Pulse 100 98 Oximetry 03/26/20 12:04 Temperature 97.6 F Pulse Rate 107 H Respiratory 20 Rate Blood Pressure 117/66 Blood Pressure [Left] O2 Sat by Pulse 98 Oximetry - Labs CBC & Chem 7: 03/23/20 19:11 03/23/20 19:11
[2020-03-26] MEDS: MAGNESIUM HYDROXIDE (MOM) ORAL LIQD UDC PO PRN (19:43)
[2020-03-26] MEDS: levETIRAcetam 500 MG/5 ML ORAL LIQD PO SCH (22:01)
[2020-03-26] MEDS: ENOXAPARIN 30 MG/0.3 ML INJ SUB-Q SCH (22:01)
[2020-03-26] MEDS: ACETAMINOPHEN 325 MG TAB PO PRN (22:09)
[2020-03-26] MEDS: carvediloL 3.125 MG TAB PO SCH (22:11)
[2020-03-27] MEDS: MORPHINE 2 MG/1 ML INJ IV PRN ×3 (02:27→23:12)
[2020-03-27] MEDS: hydrALAZINE 100 MG TAB PO SCH ×3 (05:45→21:54)
[2020-03-27] MEDS: levETIRAcetam 500 MG/5 ML ORAL LIQD PO SCH ×2 (09:48→21:55)
[2020-03-27] MEDS: carvediloL 3.125 MG TAB PO SCH ×3 (09:48→21:55)
[2020-03-27] MEDS: CLINDAMYCIN 300 MG CAP PO SCH ×3 (09:48→21:54)
[2020-03-27] MEDS: amLODIPine 10 MG TAB PO SCH (09:48)
--- NOTE | 2020-03-27 10:11 | Event Note ---
Date: 03/26/20 Spoke with patient's sister and she is agreeable for the [facility] hospice.
--- NOTE | 2020-03-27 12:20 | Progress Note ---
Assessment and Plan -- Breast cancer Patient has had left mastectomy in the past. She also has a right breast cancer with inoperable wound. She has had chemotherapy and radiation in the past. Patient follows up with Dr. Dye. Patient started on wound care and also possible hospice placement. -- Hypertensive urgency Continue to adjust BP meds for better BP control also placed on IV hydralazine as needed for optimal blood pressure control. --Osteoarthritis, supportive care and pain management as needed --Schizophrenia, history of Continue home meds, patient clinically stable -- Dehydration Patient placed on gentle IV fluid hydration. We will monitor BUN and creatinine. --Severe protein calorie malnutrition, continue nutritional supplement Consult dietary -- DVT prophylaxis Patient placed on subcutaneous Lovenox -- Full code status --Discharge planning, pending inpatient hospice placement brief History: 80-year-old after [place] female with known history of hypertension, arthritis, schizophrenia, history of metastatic right breast cancer with left mastectomy in the past presenting to the emergency room for evaluation of wound right-sided breast cancer and for possible placement. Upon arrival in the emergency room patient was hypotensive with systolic blood pressure in the 200s and diastolic blood pressure in the 100s. She was given multiple doses of IV hydralazine with some improvement in her blood pressure. Patient is being admitted for hypertensive urgency and also for evaluation of her right breast wound and for possible Hospice placement. I discussed the case with Dr. Dye -breast surgeon who also discussed with patient's oncologist Dr. Tucker and they both agreeable for the inpatient hospice placement. environmental project manager notified. Subjective Date of service: 03/26/20 Interval history: Patient seen and examined. Medical records and medication list reviewed. No acute event overnight noted by the RN. Patient with right breast wound with dressing. Patient is started on diet and tolerating. Discussed plan of care at bedside with patient. Pending inpatient hospice placement Objective - Exam Narrative Exam: - General physical appearance Positive: cathetic - Eyes Positive: PERRL, normal occular movement - ENT Positive: normal pinna, normal nares, normal mucosa, no hearing loss, no congestion - Neck Positive: no masses, trachea midline - Respiratory Positive: normal expansion, normal respiratory effort - Cardiovascular Rhythm: regular - Breasts Breasts: other (ulcerated necrotic right breast mass encompassing the entire right chest) - Abdomen Abdomen: Present: soft - Genitourinary Female Genitourinary: deferred - Neurologic Neurologic: alert and oriented to time, place and person - Psychiatric Psychiatric: appropriate mood/affect, intact judgment & insight, memory intact, cooperative - Constitutional Vitals: Vital Signs - 12hr 03/27/20 03/27/20 03/27/20 02:35 02:57 03:57 Temperature 97.4 F L Pulse Rate 82 Respiratory 18 16 Rate Respiratory 16 Rate [Right Chest] Blood Pressure 150/88 O2 Sat by Pulse 99 Oximetry - Labs CBC & Chem 7: 03/23/20 19:11 03/23/20 19:11
[2020-03-27] MEDS: ENOXAPARIN 30 MG/0.3 ML INJ SUB-Q SCH (21:55)
[2020-03-28] MEDS: hydrALAZINE 100 MG TAB PO SCH ×2 (05:50→13:23)
[2020-03-28] MEDS: MORPHINE 2 MG/1 ML INJ IV PRN ×2 (05:55→13:22)
[2020-03-28] MEDS: amLODIPine 10 MG TAB PO SCH (10:21)
[2020-03-28] MEDS: levETIRAcetam 500 MG/5 ML ORAL LIQD PO SCH (10:21)
[2020-03-28] MEDS: carvediloL 3.125 MG TAB PO SCH (10:21)
[2020-03-28] MEDS: CLINDAMYCIN 300 MG CAP PO SCH ×2 (10:21→13:24)
[2020-03-28 12:45] VITALS: BP 112/59
== END 2020-03-28 14:45 | disposition hospice, inpatient (51) | DRG 597 ==
LOC: ED 16:09 → 3A 21:26 → OBSVTOIN 03-27 14:28
PROVIDERS: ADMIT Internal Medicine Geriatric Medicine; ATTEND Internal Medicine
DX: C79.81 Secondary malignant neoplasm of breast (principal); E43 Unspecified severe protein-calorie malnutrition; Z68.1 Body mass index [BMI] 19.9 or less, adult; I16.0 Hypertensive urgency; S21.009A Unspecified open wound of unspecified breast, initial encounter; E86.0 Dehydration; I10 Essential (primary) hypertension; M19.90 Unspecified osteoarthritis, unspecified site; C50.911 Malignant neoplasm of unspecified site of right female breast; F20.9 Schizophrenia, unspecified; Z91.14 Patient's other noncompliance with medication regimen; Z90.710 Acquired absence of both cervix and uterus; E78.5 Hyperlipidemia, unspecified; Z90.12 Acquired absence of left breast and nipple; Z51.5 Encounter for palliative care
CPT/HCPCS: 36415; 80053; 82962; 84443; 85025; 93005; 96365; 96375; G0378; J0360; J1650; J2270; J7030; J7040